=== PATIENT | male | born 1955 | race African-American/Black ===

== ENCOUNTER 2016-12-07 13:49 | Emergency (ER) | payer MEDICAID, OTHER ==
[~2016-12-07] VITALS: Ht 177.8 cm; Wt 80.0 kg
[2016-12-07 13:53] VITALS: BP 95/60
== END 2016-12-07 14:37 | disposition left against medical advice (07) ==
LOC: ER 14:18
DX: Z53.21 Procedure and treatment not carried out due to patient leaving prior to being seen by health care provider (principal)